=== PATIENT | male | born 1990 ===

== ENCOUNTER 2023-07-07 15:36 | Observation (INO) | payer OTHER ==
[2023-07-07 16:00] VITALS: BMI 23.7
[2023-07-07] MEDS ORDERED: DIPHTH,PERTUSS(ACELL),TET 0.5 ML DISP.SYRIN IM ONE (16:41)
[2023-07-07] MEDS: DIPHTH,PERTUSS(ACELL),TET 0.5 ML DISP.SYRIN IM ONE (17:22)
[2023-07-07] MEDS: SODIUM CHLORIDE 0.9% 500 ML INFUS.BAG IV ONE (17:23)
[2023-07-07 18:06] LABS: CHLORIDE 109 mmol/L (98-107); SODIUM 137 mmol/L (136-145)
[2023-07-07 18:08] LABS: CALCIUM 9.2 mg/dL (8.5-10.1)
[2023-07-07 18:09] LABS: BLOOD UREA NITROGEN 14.2 mg/dL (7-18); CO2 26 mmol/L (21-32); GLUCOSE,RANDOM 80 mg/dL (74-106); MAGNESIUM 2.3 mg/dL (1.8-2.4)
[2023-07-07 18:12] LABS: SGOT/AST 100 U/L (15-37); SGPT/ALT 49 U/L (13-61)
[2023-07-07 18:13] LABS: BILIRUBIN,TOTAL 0.7 mg/dL (0.2-1); TOT PROT 7.9 g/dl (6.4-8.2)
[2023-07-07 18:15] LABS: ALK PHOS 52 U/L (45-117)
[2023-07-07 18:22] LABS: ANION GAP 3 mmol/L (4-13); POTASSIUM 8.5 mmol/L (3.5-5.1)
[2023-07-07 19:50] LABS: HEMATOCRIT 43.9 % (35.4-49); HEMOGLOBIN 14.7 GM/dL (11.7-16.9); MCHC 33.4 g/dl (32.0-35.9); MEAN CELL VOLUME 98.7 fl (80-96); MEAN PLT VOLUME 8.4 fl (7.5-11.1); PLATELET COUNT 152 10^3/uL (134-434); RBC 4.45 M/mm3 (4.00-5.60); RDW 17.4 % (11.9-15.9); WHITE BLOOD COUNT 7.4 K/mm3 (4.0-10.0)
[2023-07-07] MEDS ORDERED: HALOPERIDOL LACTATE 5 MG/ML ONE (19:57)
[2023-07-07] MEDS: HALOPERIDOL LACTATE 5 MG/ML IM ONE (20:08)
[2023-07-07 20:16] LABS: POTASSIUM 4.2 mmol/L (3.5-5.1)
[2023-07-07 20:19] LABS: BLOOD UREA NITROGEN 13.2 mg/dL (7-18); CALCIUM 8.9 mg/dL (8.5-10.1)
[2023-07-07 20:21] LABS: CREATININE 0.9 mg/dL (0.55-1.3)
[2023-07-07 20:23] LABS: BILIRUBIN,TOTAL 0.7 mg/dL (0.2-1); TOT PROT 6.9 g/dl (6.4-8.2)
[2023-07-07] MEDS ORDERED: ACETAMINOPHEN 1000 MG/100 ML BAG IVPB PRN (22:53)
[2023-07-08 02:55] LABS: URINE APPEARANCE CLEAR; URINE BILIRUBIN NEGATIVE (NEGATIVE); URINE COLOR YELLOW; URINE GLUCOSE (UA) NEGATIVE (NEGATIVE); URINE KETONE TRACE (NEGATIVE); URINE LEUK ESTERASE NEGATIVE (NEGATIVE); URINE NITRITE NEGATIVE (NEGATIVE); URINE PROTEIN NEGATIVE (NEGATIVE)
[2023-07-08] MEDS ORDERED: MAGNESIUM HYDROX 2400MG/30ML ORAL SUSPENSION 30 ML CUP PO PRN (05:45)
[2023-07-08] MEDS ORDERED: LORazepam 1 MG TABLET PO PRN ×2 (06:00→06:38)
[2023-07-08] MEDS: DIVALPROEX NA *ER* EXTEND REL 500 MG TABLET.SA (FP) PO SCH (06:37)
[2023-07-08 08:13] LABS: POTASSIUM 3.9 mmol/L (3.5-5.1)
[2023-07-08 08:18] LABS: CALCIUM 8.8 mg/dL (8.5-10.1)
[2023-07-08 08:19] LABS: BLOOD UREA NITROGEN 12.2 mg/dL (7-18); INR 1.17 (0.83-1.09); PROTHROMBIN TIME (PATIENT) 13.6 SEC (9.7-13.0)
[2023-07-08 08:21] LABS: ACTIVATED PTT 32.3 SECONDS (25.2-36.5)
[2023-07-08 08:22] LABS: CREATININE 0.9 mg/dL (0.55-1.3)
[2023-07-08 08:34] LABS: BASO % 0.3 % (0-2.0); EOS % 0.5 % (0-4.5); HEMATOCRIT 43.1 % (35.4-49); HEMOGLOBIN 14.4 GM/dL (11.7-16.9); LYMPH % 34.8 % (8-40); MCH 32.9 pg (25.7-33.7); MCHC 33.3 g/dl (32.0-35.9); MEAN CELL VOLUME 98.9 fl (80-96); MEAN PLT VOLUME 8.1 fl (7.5-11.1); NEUT % 53.4 % (42.8-82.8); PLATELET COUNT 157 10^3/uL (134-434); RBC 4.36 M/mm3 (4.00-5.60); RDW 17.2 % (11.9-15.9); WHITE BLOOD COUNT 6.8 K/mm3 (4.0-10.0)
[2023-07-08] MEDS ORDERED: SERTRALINE HCL 50 MG TABLET (FP) ONE (10:23)
[2023-07-08] MEDS ORDERED: MULTIVITAMINS (DAILY MVI) TABLET (FP) ONE (10:23)
[2023-07-08] MEDS ORDERED: ASCORBIC ACID 500 MG TABLET (FP) ONE (10:23)
[2023-07-08 10:30] VITALS: RESP 18
[2023-07-08] MEDS: ASCORBIC ACID 500 MG TABLET (FP) PO SCH (11:15)
[2023-07-08] MEDS: SERTRALINE HCL 50 MG TABLET (FP) PO SCH (11:15)
[2023-07-08] MEDS: MULTIVITAMINS (DAILY MVI) TABLET (FP) PO SCH (11:15)
[2023-07-08 15:32] VITALS: BP 117/75; PULSE 64; TEMP 97.6
[2023-07-08] MEDS ORDERED: MELATONIN 1 MG TABLET PO SCH (22:00)
[2023-07-08] MEDS ORDERED: risperiDONE 1 MG TABLET PO SCH (22:00)
[2023-07-08] MEDS ORDERED: hydrOXYzine PAMOATE 50 MG CAPSULE (FP) PO SCH (22:00)
[2023-07-08] MEDS ORDERED: ACETAMINOPHEN 325 MG TABLET (FP) PO PRN (22:48)
== END 2023-07-08 16:04 ==
LOC: JER 15:36 → JERBED 22:05
PROVIDERS: ADMIT Internal Medicine; ATTEND Internal Medicine
PROC: 3E0234Z Introduction of Serum, Toxoid and Vaccine into Muscle, Percutaneous Approach (ICD-10-PCS; principal; 2023-07-07)
DX: S09.90XA Unspecified injury of head, initial encounter (principal); W05.0XXA Fall from non-moving wheelchair, initial encounter; Y93.89 Activity, other specified; Y92.098 Other place in other non-institutional residence as the place of occurrence of the external cause; H04.123 Dry eye syndrome of bilateral lacrimal glands; F22 Delusional disorders; F41.8 Other specified anxiety disorders; I69.820 Aphasia following other cerebrovascular disease; R29.6 Repeated falls; F19.19 Other psychoactive substance abuse with unspecified psychoactive substance-induced disorder; F25.9 Schizoaffective disorder, unspecified; Z23 Encounter for immunization; I51.7 Cardiomegaly; Z88.0 Allergy status to penicillin; Z88.5 Allergy status to narcotic agent; Z91.018 Allergy to other foods
CPT/HCPCS: 0241U-QW; 36415; 70450-TC; 70486-TC; 71045-TC-FY; 72125-TC; 72170-TC-FY; 80048; 80053; 81003; 83735; 84484; 85025; 85027; 85610; 85730; 87086; 90471; 90715; 93005; 93010; 99285-25; G0378

== ENCOUNTER 2023-11-29 21:59 | Emergency (ER) | payer OTHER ==
[2023-11-29 22:20] VITALS: RESP 16; TEMP 97.8; BMI 22.3
[2023-11-29] MEDS ORDERED: ACETAMINOPHEN 325 MG TABLET (FP) ONE (22:29)
[2023-11-29] MEDS: ACETAMINOPHEN 500 MG TABLET (FP) PO ONE (22:34)
[2023-11-30 02:22] VITALS: BP 107/74; PULSE 60
== END 2023-11-30 02:30 | disposition home or self-care (01) ==
LOC: JER 21:59
DX: R51.9 Headache, unspecified (principal); R29.6 Repeated falls; W06.XXXA Fall from bed, initial encounter; Z20.822 Contact with and (suspected) exposure to COVID-19
CPT/HCPCS: 0241U-QW; 70450-TC; 72125-TC; 99284-25